=== PATIENT | male | born 1965 | race African-American/Black ===

== ENCOUNTER 2016-07-08 20:15 | Emergency (ER) | payer MEDICAID ==
[~2016-07-08] VITALS: Ht 170.2 cm; Wt 86.2 kg
[2016-07-08] MEDS ORDERED: ZYPREXA2.5 MG ORAL (20:26)
[2016-07-08] MEDS ORDERED: UNOBMED (20:26)
[2016-07-08] MEDS ORDERED: ZOLOFT25 MG ORAL (20:26)
[2016-07-08] MEDS ORDERED: ABILIFY15 MG ORAL (20:26)
[2016-07-08] MEDS ORDERED: IBUPROFEN600 MG ORAL (20:38)
[2016-07-08] MEDS ORDERED: PENICILLIN V P500 MG PO (20:39)
[2016-07-08 20:45] VITALS: BP 145/93
[2016-07-08 20:54] VITALS: BP 145/93
--- NOTE | 2016-07-12 13:49 | Emergency Room Report ---
History of Present Illness General Chief Complaint: Headache Source: Patient Present Illness HPI Patient is a 50-year-old male who presented after increased headache gradual onset over the past few days. The patient had noticed some increased pain to his throat as well as some mouth lesions. Patient had history of hypertension. Patient had been taking ibuprofen without relief in headache. The patient had no recent vomiting or diarrhea. Patient denied any fever or neck stiffness.The pain was throbbing in nature. Allergies: Coded Allergies: No Known Allergies (Unverified , 07/08/16) Patient History Past Medical History: see triage record Reviewed Nursing Documentation: PMH: Agreed, PSxH: Agreed Nursing Documentation-PMH Past Medical History: No History, Except For Hx Cardiac Problems: No Hx Hypertension: Yes - HIV + Hx Asthma: No Review of Systems All Other Systems: negative except mentioned in HPI Physical Exam Vital Signs Date Time Temp Pulse Resp B/P Pulse Ox O2 Delivery O2 Flow Rate FiO2 07/08/16 20:21 98.4 100 16 145/93 98 Room Air General Appearance: well appearing, no apparent distress, alert, GCS 15 Head: normocephalic, atraumatic ENT: hearing grossly normal, normal voice, other - apthous ulcer to oropharynx Neck: full range of motion, supple Respiratory: no respiratory distress, speaking full sentences Cardiovascular #1: normal peripheral pulses, regular rate, rhythm, no edema Gastrointestinal: normal inspection, non tender, soft Musculoskeletal: normal inspection, back normal, digits/nails normal, no calf tenderness Neurologic: normal inspection, alert, oriented x3, responsive, operations lieutenant III-XII nml as tested, normal gait Psychiatric: mood/affect normal Skin: no rash Medical Decision Making Diagnostic Impression: Primary Impression: Headache Additional Impression: Aphthous ulcer ER Course Patient presented for headache.Differential diagnoses included but was not limited to skull fracture, subarachnoid hemorrhage, meningitis, aneurysm, mass lesion, intracranial hemorrhage. Patient's benign exam and does not appear to require any further imaging or laboratory testing at this time. The patient appears to have a viral illness. The patient was advised followup with his infectious disease physician. Patient was given penicillin for a dental infection. Patient is advised to recheck in one to 2 days. He is advised to return if he began having worsening headache high fever or other concerns. Last Vital Signs Date Time Temp Pulse Resp B/P Pulse Ox O2 Delivery O2 Flow Rate FiO2 07/08/16 20:54 98.4 16 145/93 98 Room Air 07/08/16 20:21 100 Status: improved Disposition: HOME, SELF-CARE Condition: Stable Scripts Penicillin V Potassium* (PENVK*) 500 Mg Tablet 500 MG PO Q6H, #28 TAB 0 Refills Prov: Raghavendra Roy 07/08/16 Ibuprofen* (MOTRIN*) 600 Mg Tablet 600 MG ORAL Q8H Y for For Pain, #30 TAB 0 Refills Prov: Raghavendra Roy 07/08/16 Referrals: NON PHYSICIAN (PCP) Patient Instructions: Oral Ulcers, General Headache Without Cause Raghavendra Roy Jul 12, 2016 13:49
== END 2016-07-08 20:54 | disposition home or self-care (01) ==
LOC: EMR 20:46
DX: R51 Headache (principal); K12.0 Recurrent oral aphthae; I10 Essential (primary) hypertension
CPT/HCPCS: 99284

== ENCOUNTER 2016-12-01 05:08 | Emergency (ER) | payer MEDICAID ==
[~2016-12-01] VITALS: Ht 170.2 cm; Wt 90.7 kg
[~2016-12-01 05:08] MED LIST: ABILIFY15 MG ORAL; IBUPROFEN600 MG ORAL; PENICILLIN V P500 MG PO; UNOBMED; ZOLOFT25 MG ORAL; ZYPREXA2.5 MG ORAL
[2016-12-01 05:30] VITALS: BP 111/78
[2016-12-01] MEDS ORDERED: ANUSOL-HC25 MG RECTAL (06:24)
[2016-12-01] MEDS ORDERED: MAGIC MOUTH WAS60 ML MM (06:24)
[2016-12-01 06:35] VITALS: BP 118/82
--- NOTE | 2016-12-02 07:35 | Emergency Room Report ---
History of Present Illness General Chief Complaint: Gastrointestinal Bleed Source: Patient Present Illness HPI 51YOM walk-in with hemorrhoids and bleeding for 2 days States applying prep-H without improvement Known hemorrhoids States "bleeding a lot." States he looked on internet and was told he "needs emergency surgery." Denies chest pain, palpitations, SOB, dizziness Never had colonoscopy hasnt seen GI or surgeon for hemorrhoids in past Allergies: Coded Allergies: No Known Allergies (Unverified , 07/08/16) Patient History Past Medical History: none Past Surgical History: none Pertinent Family History: none Social History: Denies: smoking, alcohol use, drug use Immunizations: UTD Reviewed Nursing Documentation: PMH: Agreed, PSxH: Agreed Nursing Documentation-PMH Hx Cardiac Problems: No Hx Hypertension: Yes - HIV + Hx Asthma: No Review of Systems All Other Systems: negative except mentioned in HPI Physical Exam Vital Signs Date Time Temp Pulse Resp B/P (MAP) Pulse Ox O2 Delivery O2 Flow Rate FiO2 12/01/16 05:25 98.4 103 18 111/78 98 12/01/16 05:30 Room Air Sp02 EP Interpretation: reviewed, normal General Appearance: normal inspection, well appearing, no apparent distress, alert, GCS 15, non-toxic Head: normocephalic, atraumatic Eyes: bilateral eye PERRL, bilateral eye EOMI ENT: normal ENT inspection, hearing grossly normal, normal voice Neck: normal inspection, full range of motion, supple, no bony tend Respiratory: normal inspection, lungs clear, normal breath sounds, no respiratory distress, no retraction, no wheezing Cardiovascular #1: regular rate, rhythm, no edema Gastrointestinal: normal inspection, normal bowel sounds, non tender, soft, no guarding, no hernia Rectal: normal exam, other - 12'oclock there is very small external hemhorrid with mild ttp. no active bleeding or melena. No fissure. No masses Genitourinary: no CVA tenderness Musculoskeletal: normal inspection, back normal, normal range of motion, Kaden' s Sign negative Neurologic: normal inspection, alert, oriented x3, responsive, dance professor III-XII nml as tested, motor strength/tone normal, speech normal Psychiatric: normal inspection, judgement/insight normal, mood/affect normal Medical Decision Making Diagnostic Impression: Primary Impression: Hemorrhoids Qualified Codes: K64.0 - First degree hemorrhoids ER Course Very mild hemorrhoids VSS Afebrile No active bleeding No anal fissure or mass Advised prep-H suppository, topical viscous lidocaine PMD and GI referral DC home Last Vital Signs Date Time Temp Pulse Resp B/P (MAP) Pulse Ox O2 Delivery O2 Flow Rate FiO2 12/01/16 06:35 98.4 99 18 118/82 98 Room Air Status: improved Disposition: HOME, SELF-CARE Condition: Improved Scripts Hydrocortisone Acetate* (ANUSOL-HC*) 25 Mg Supp.rect 1 SUPP RECTAL TWICE A DAY for 7 Days, #30 SUPP Prov: CHRISSIE REEDER M.D. 12/01/16 Lidocaine HCl (Lidocaine HCl Viscous) 100 Ml Solution 10 ML MM TID for rectal pain for 7 Days, #1 UNIT Prov: CHRISSIE REEDER M.D. 12/01/16 Referrals: NON PHYSICIAN (PCP) Patient Instructions: Hemorrhoids CHRISSIE REEDER M.D. Dec 02, 2016 07:35
== END 2016-12-01 06:35 | disposition home or self-care (01) ==
LOC: EMR 05:50
DX: K64.0 First degree hemorrhoids (principal)
CPT/HCPCS: 99284

== ENCOUNTER 2017-10-28 10:26 | Emergency (ER) | payer MEDICAID ==
[~2017-10-28] VITALS: Ht 170.2 cm; Wt 83.5 kg
[~2017-10-28 10:26] MED LIST changes: +ANUSOL-HC25 MG RECTAL; +MAGIC MOUTH WAS60 ML MM
[2017-10-28] MEDS ORDERED: Ketorolac 60mg Inj IM ONE (11:15)
--- NOTE | 2017-10-28 11:36 | Diagnostic Imaging Report ---
Indication: Pain Technique: XRAY Hip Routine 2v+ R Comparison: None Findings: No definite/displaced fracture identified. There is mild degenerative change of the right hip with some small marginal osteophytes. Some enthesopathic change in the pelvic bones noted. Symphysis pubis appears maintained. Some phleboliths are identified. Impression: No definite/displaced acute fracture.
--- NOTE | 2017-10-28 11:37 | Diagnostic Imaging Report ---
Indication: Pain Technique: XRAY Ankle Compl Min 3v R Comparison: None Findings: There is no evidence of acute fracture. Ankle mortise is intact on these nonstress views. There is a small plantar calcaneal enthesophyte. Otherwise, imaged hindfoot grossly unremarkable. No radiopaque foreign body seen. Impression: No evidence of acute fracture or dislocation. Small plantar calcaneal enthesophyte.
[2017-10-28] MEDS ORDERED: VOLTAREN100 G1 TP (12:04)
[2017-10-28 12:22] VITALS: BP 122/71
--- NOTE | 2017-10-28 13:03 | Emergency Room Report ---
History of Present Illness General Chief Complaint: Lower Extremity Injury Source: Patient, Medical Record Present Illness HPI Patient is a 52-year-old male who presented after increased right-sided hip pain as well as right ankle pain. Patient prior history of chronic arthritis to his right lower extremities. The patient reports having recent increased pain. He denies any fever. He reports having a recent ankle injury and subsequently been having increased pain. He denies any numbness or tingling. He reports having pain to the posterior buttock as well as to the right ankle. Patient reports being a smoker. He denies any fever. Allergies: Coded Allergies: No Known Allergies (Unverified , 07/08/16) Patient History Past Medical History: see triage record Reviewed Nursing Documentation: PMH: Agreed; PSxH: Agreed Nursing Documentation-PMH Past Medical History: No History, Except For Hx Cardiac Problems: No Hx Hypertension: Yes - HIV + Hx Asthma: No Review of Systems All Other Systems: negative except mentioned in HPI Physical Exam Vital Signs Date Time Temp Pulse Resp B/P (MAP) Pulse Ox O2 Delivery O2 Flow Rate FiO2 10/28/17 10:29 98.5 81 18 117/84 99 Room Air 98.4 General Appearance: well appearing, no apparent distress, alert, GCS 15 Head: normocephalic, atraumatic ENT: hearing grossly normal, normal voice Neck: full range of motion, supple Respiratory: no respiratory distress, speaking full sentences Cardiovascular #1: normal inspection, normal peripheral pulses, regular rate, rhythm, no edema Musculoskeletal: no calf tenderness, other - pulses present Neurologic: normal inspection, alert, oriented x3, normal gait Psychiatric: mood/affect normal Skin: no rash Medical Decision Making Diagnostic Impression: Primary Impression: Arthritis ER Course Patient present for right lower extremity pain. Differential diagnosis included but was not limited to fracture, contusion, vascular insufficiency, aortic aneurysm, cellulitis.Because of complexity of patient's case imaging studies were ordered. The x-ray imaging of the right hip as well as the right ankle showed no definite fracture with small marginal osteophytes x-ray of the ankle 3 views read by radiology showed small plantar calcaneal osteophyte no evident fracture. The patient was given pain medications. He is advised follow -up with his own primary care physician for orthopedic referral the patient was advised smoking cessation as well as improve diet. Last Vital Signs Date Time Temp Pulse Resp B/P (MAP) Pulse Ox O2 Delivery O2 Flow Rate FiO2 10/28/17 12:22 98.2 71 16 122/71 98 Room Air 98.4 Status: improved Disposition: HOME, SELF-CARE Condition: Stable Scripts Diclofenac Sodium (VOLTAREN) 100 Gm Gel..gram. 100 GM TP THREE TIMES A DAY, #100 GM Prov: Raghavendra Roy MD 10/28/17 Patient Instructions: Hip Pain, Ankle Pain Raghavendra Roy MD Oct 28, 2017 13:03
== END 2017-10-28 12:23 | disposition home or self-care (01) ==
LOC: EMR 11:15
DX: M19.071 Primary osteoarthritis, right ankle and foot (principal); M16.11 Unilateral primary osteoarthritis, right hip
CPT/HCPCS: 96372; 99284

== ENCOUNTER 2018-02-08 17:59 | Emergency (ER) | payer MEDICAID ==
[~2018-02-08] VITALS: Ht 170.2 cm; Wt 81.6 kg
[~2018-02-08 17:59] MED LIST changes: +VOLTAREN100 G1 TP
[2018-02-08] MEDS ORDERED: IBUPROFEN600 MG ORAL (18:56)
[2018-02-08 19:16] VITALS: BP 140/80
--- NOTE | 2018-02-08 20:14 | Emergency Room Report ---
History of Present Illness General Chief Complaint: Lower Extremity Injury Source: Patient Present Illness HPI Patient is a 52-year-old male presenting for right ankle pain for the past 3 days. He states that he was walking and misstepped and felt the ankle folded underneath him. Pain has continued and is a 6 out of 10 dull ache now. Does not radiate. Worse with movement and walking. he has used Tylenol which helps. He admits to many sprained ankles in the past and this feels similar. He denies any other injury or symptoms Allergies: Coded Allergies: No Known Allergies (Unverified , 07/08/16) Patient History Past Medical History: see triage record Pertinent Family History: none Reviewed Nursing Documentation: PMH: Agreed; PSxH: Agreed Nursing Documentation-PMH Past Medical History: No History, Except For Hx Cardiac Problems: No Hx Hypertension: Yes - HIV + Hx Asthma: No Review of Systems All Other Systems: negative except mentioned in HPI Physical Exam Vital Signs Date Time Temp Pulse Resp B/P (MAP) Pulse Ox O2 Delivery O2 Flow Rate FiO2 02/08/18 18:04 97.7 110 18 143/84 98 Room Air Sp02 EP Interpretation: reviewed, normal General Appearance: no apparent distress, alert, GCS 15, non-toxic Head: normocephalic, atraumatic Eyes: bilateral eye normal inspection, bilateral eye PERRL ENT: hearing grossly normal, normal pharynx, no angioedema, normal voice Neck: full range of motion, supple/symm/no masses Musculoskeletal: no calf tenderness, decreased range of motion - R ankle with internal and ext rotation, swelling - R ankle, tender - R ankle medial mal Neurologic: alert, oriented x3, responsive, motor strength/tone normal, sensory intact, speech normal Psychiatric: judgement/insight normal, memory normal, mood/affect normal, no suicidal/homicidal ideation Skin: normal color, no rash, warm/dry, well hydrated Procedures Splinting Splinting : Consent: Verbal Location: R ankle Pre-Made Type: ALBA wrap Pre-Proc Neuro Vasc Exam: normal Post-Proc Neuro Vasc Exam: normal Patient Tolerated: Well Complications: None Medical Decision Making PA Attestation Dr. Heard is my supervising physician. Patient management was discussed with my supervising physician Diagnostic Impression: Primary Impression: Right ankle sprain Qualified Codes: S93.401A - Sprain of unspecified ligament of right ankle, initial encounter ER Course Patient is a 52-year-old male presenting for right ankle pain for the past 3 days Ddx considered include but not limited to sprain/strain, fracture, contusion Physical exam: Vitals within normal limits. No apparent distress Left ankle: There is tenderness to palpation and edema over the left lateral malleolus. Limited active range of motion. Sensation intact to light touch. X-ray of the R ankle shows soft tissue swelling. Otherwise unremarkable R ankle placed in ALBA wrap and the patient is provided crutches. ER precautions are given. Patient given prescription for Motrin and will follow up with primary care physician. Other X-Ray Diagnostic Results Other X-Ray Diagnostic Results : X-Ray ordered: R ankle # of Views/Limited Vs Complete: 3 View, Complete Indication: Pain EP Interpretation: Yes ESTHER Xray: Interpretation reviewed, by supervising MD, and agrees with findings. Interpretation: no dislocation, no fractures, other - + STS Impression: Other - + STS. no fracture Electronically Signed by: Willie Cruz PA-C Last Vital Signs Date Time Temp Pulse Resp B/P (MAP) Pulse Ox O2 Delivery O2 Flow Rate FiO2 02/08/18 19:16 98.6 78 16 140/80 100 Room Air Status: improved Disposition: HOME, SELF-CARE Condition: Improved Scripts Ibuprofen* (MOTRIN*) 600 Mg Tablet 600 MG ORAL Q8H PRN for For Pain, #30 TAB 0 Refills Prov: WILLIE CRUZ 02/08/18 Patient Instructions: Ankle Sprain Additional Instructions: I discussed my findings with the patient. All questions and concerns have been answered. Treatment and medication compliance have been addressed. I advised the patient that they need to follow up with PMD in 3-5 days. Return to ED if pain remains or worsens, numbness or tingling occurs, new rash is noticed, fever is noticed, or if needed for any reason. Patient verbalized understanding of discharge instructions. WILLIE CRUZ Feb 08, 2018 20:14
--- NOTE | 2018-02-09 17:49 | Diagnostic Imaging Report ---
Indication: Pain Technique: 3 views of the right ankle Comparison: none Findings: There is a small plantar spur. No acute fractures. No dislocations. The joint spaces are preserved Impression: Negative This agrees with the preliminary interpretation provided by the emergency room physician
== END 2018-02-08 19:18 | disposition home or self-care (01) ==
LOC: EMR 18:40
DX: S93.401A Sprain of unspecified ligament of right ankle, initial encounter (principal); X50.1XXA Overexertion from prolonged static or awkward postures, initial encounter; Y92.9 Unspecified place or not applicable; I10 Essential (primary) hypertension
CPT/HCPCS: 99282

== ENCOUNTER 2018-07-17 15:53 | Emergency (ER) | payer MEDICAID ==
[~2018-07-17] VITALS: Ht 170.2 cm; Wt 81.6 kg
--- NOTE | 2018-07-17 16:34 | NUR ---
ED Nurse Note: pt walked in c/o right ankle pain, pt states he injured his right ankle before and today he was stepping down the stairs and accidentally tripped on his ankle. noted swelling and tenderness, cms intact, cap refill <3sec will cont monitor.
[2018-07-17] MEDS ORDERED: NORCO 5-325 TA1 EACH ORAL (17:18)
--- NOTE | 2018-07-17 17:19 | Emergency Room Report ---
History of Present Illness General Chief Complaint: Lower Extremity Injury Source: Medical Record Present Illness HPI 52-year-old male presents with ankle pain and swelling since 2 days ago. States that he rolled his ankle. He has swelling and tenderness associated with symptoms. He denies any bruising. He is taken naproxen without improvement of symptoms today. States that he has a history of a heel spur there before believes that this might be the source of his pain. Patient denies any numbness, tingling, pressure, paralysis, cyanosis, bruising, loss of sensation, or loss of range of motion. Allergies: Coded Allergies: No Known Allergies (Unverified , 07/08/16) Patient History Past Medical History: see triage record Past Surgical History: none Pertinent Family History: none Reviewed Nursing Documentation: PMH: Agreed; PSxH: Agreed Nursing Documentation-PMH Past Medical History: No History, Except For Hx Cardiac Problems: No Hx Hypertension: Yes - HIV + Hx Asthma: No Review of Systems All Other Systems: negative except mentioned in HPI Physical Exam Vital Signs Date Time Temp Pulse Resp B/P (MAP) Pulse Ox O2 Delivery O2 Flow Rate FiO2 07/17/18 16:11 98.8 102 18 153/95 95 Room Air Sp02 EP Interpretation: reviewed, normal General Appearance: no apparent distress, alert, GCS 15, non-toxic Head: normocephalic, atraumatic Eyes: bilateral eye normal inspection, bilateral eye PERRL ENT: hearing grossly normal, normal pharynx, no angioedema, normal voice Neck: normal inspection Respiratory: no respiratory distress Cardiovascular #1: normal peripheral pulses, regular rate, rhythm Musculoskeletal: back normal, normal range of motion, swelling - Right medial malleolus, other - Antalgic gait, tender - Right medial malleolus Neurologic: alert, oriented x3, responsive, motor strength/tone normal, sensory intact, speech normal Skin: normal color, no rash, warm/dry, well hydrated Medical Decision Making PA Attestation Dr. Medina is my supervising physician with whom patient management has been discussed with. Diagnostic Impression: Primary Impression: Right ankle sprain Additional Impression: Heel spur Qualified Codes: M77.31 - Calcaneal spur, right foot ER Course 52-year-old male presents with right ankle pain for 2 days status post inversion injury. On exam he has swelling and tenderness to the medial malleolus of his right ankle. X-ray of the right ankle shows no acute fracture but does show soft tissue swelling and a heel spur. Patient is able to ambulate without any significant difficulty although he does have an antalgic gait. Patient will be sent home with prescription of [place], and Cosme wrap bandage, and crutches and advised to follow-up with his primary care provider. At this time the patient appears stable for discharge home without any emergent exam findings. Will provide printed patient care instructions, and any necessary prescriptions. Care plan and follow up instructions have been discussed with the patient prior to discharge. Other X-Ray Diagnostic Results Other X-Ray Diagnostic Results : X-Ray ordered: Right ankle and foot # of Views/Limited Vs Complete: Complete Indication: Pain EP Interpretation: Yes ESTHER Xray: Interpretation reviewed, by supervising MD, and agrees with findings. Interpretation: no dislocation, no fractures, other - Soft tissue swelling along the medial malleolus. Heel spur noted Electronically Signed by: Chato Johnson PA-C Last Vital Signs Date Time Temp Pulse Resp B/P (MAP) Pulse Ox O2 Delivery O2 Flow Rate FiO2 07/17/18 16:11 98.8 102 18 153/95 95 Room Air Condition: Stable Scripts Hydrocodone Bit/Acetaminophen 5-325* (NORCO 5-325*) 1 Each Tablet 1 TAB ORAL Q8HR PRN for For Pain, #15 TAB 0 Refills Prov: Chato Johnson 07/17/18 Patient Instructions: Ankle Sprain Additional Instructions: Take medication as directed. Patient advised to follow up with primary care provider within next 3-5 days. Keep Cosme wrap and crutches as directed. Advised patient to use RICE therapy and nsaids as prescribed. Patient is to go to the ER immediately if they experience any pain that is not responding to medication , excess swelling, pressure feeling, loss of color, cyanosis, paralysis, or numbness. Chato Johnson Jul 17, 2018 17:19
--- NOTE | 2018-07-17 17:29 | Diagnostic Imaging Report ---
Indication: Pain status post fall Technique: XRAY Foot Complete R Comparison: None Findings: No evidence of acute fracture or dislocation. Small plantar enthesophyte is noted. There may be mild pes planus. No radiopaque foreign body identified. Impression: No acute fracture or dislocation.
--- NOTE | 2018-07-17 17:30 | Diagnostic Imaging Report ---
Indication: Reason For Exam: PAIN Technique: 3 views of the right ankle Comparison: none Findings: No acute fracture identified. Ankle mortise is intact on these nonstress views. No ankle joint effusion is appreciated. There is soft tissue swelling about the medial malleolus. A small plantar calcaneal enthesophyte is noted. No radiopaque foreign body. Impression: Mild swelling about the medial malleolus suggestive of an ankle sprain. No evidence of acute fracture. Ankle mortise intact.
--- NOTE | 2018-07-17 17:40 | NUR ---
ED Nurse Note: pt cleared to be d/c per ER provider, pt acewrap applied per provider order, pt refused crutches, pt discharge and aftercare instruction provided w/ prescription, pt education done via discussion and handout, pt advised to follow up with pcp or return to ed if changes in condition, pt verbalized understanding and agrees with plan, vss, ambulatory w/ steady gait, left w/ all belongings, ID band removed.
[2018-07-17 17:41] VITALS: BP 153/95
== END 2018-07-17 17:40 | disposition home or self-care (01) ==
LOC: EMR 16:40
DX: S93.401A Sprain of unspecified ligament of right ankle, initial encounter (principal); X50.1XXA Overexertion from prolonged static or awkward postures, initial encounter; Y92.9 Unspecified place or not applicable; M77.31 Calcaneal spur, right foot
CPT/HCPCS: 99284

== ENCOUNTER 2018-10-13 10:50 | Emergency (ER) | payer MEDICAID ==
[~2018-10-13] VITALS: Ht 170.2 cm; Wt 81.6 kg
[~2018-10-13 10:50] MED LIST changes: +NORCO 5-325 TA1 EACH ORAL
[2018-10-13] MEDS ORDERED: VIAGRA100 MG PO (11:02)
--- NOTE | 2018-10-13 11:11 | NUR ---
ED Nurse Note: pt walked in due to pain on the right hip and posible std on his anus. pt stated he might twisted his hip 2-3 days ago when trying to help someone. and pt is also concern on his ninfa if he has std because he said it has a small bleeding. pt able to give urine specimen and sent to lab. will continue to monitor.
[2018-10-13] MEDS ORDERED: Lidocaine 1% MPF 10mg/ml 5ml INJ ONE (12:00)
[2018-10-13] MEDS ORDERED: Azithromycin 250mg tab ORAL ONE (12:00)
[2018-10-13] MEDS ORDERED: Naproxen 500mg tab ORAL ONE (12:00)
--- NOTE | 2018-10-13 12:08 | Emergency Room Report ---
History of Present Illness General Chief Complaint: Lower Extremity Injury Source: Patient Present Illness HPI 53-year-old male with a history of receptive anal intercourse as well as back arthritis and heel spurs presents with rectal discomfort and concern for STD status post unprotected intercourse. He denies any fevers, lumps or masses, foreign body sensation, urinary symptoms, and reports he has had chlamydia and gonorrhea in the remote past. Still complains of right hip pain, feels like he twisted it a few weeks ago, and is able to ambulate on it. Denies fevers, he ambulates at baseline with a cane Allergies: Coded Allergies: No Known Allergies (Unverified , 07/08/16) Patient History Past Medical History: see triage record Reviewed Nursing Documentation: PMH: Agreed; PSxH: Agreed Nursing Documentation-PMH Past Medical History: No History, Except For Hx Cardiac Problems: No Hx Hypertension: Yes - HIV + Hx Asthma: No Review of Systems All Other Systems: negative except mentioned in HPI Physical Exam Vital Signs Date Time Temp Pulse Resp B/P (MAP) Pulse Ox O2 Delivery O2 Flow Rate FiO2 10/13/18 10:53 97.9 97 17 144/95 (111) 99 Room Air Sp02 EP Interpretation: reviewed, normal General Appearance: no apparent distress, alert, non-toxic Head: normocephalic Eyes: bilateral eye normal inspection, bilateral eye PERRL, bilateral eye EOMI ENT: normal ENT inspection, hearing grossly normal, normal pharynx, no angioedema, normal voice, moist mucus membranes Neck: normal inspection, full range of motion, supple, supple/symm/no masses Respiratory: chest non-tender, lungs clear, normal breath sounds, chest symmetrical, palpation of chest normal Cardiovascular #1: normal peripheral pulses, regular rate, rhythm, no edema, no gallop, no JVD Cardiovascular #2: 2+ radial (R), 2+ radial (L) Gastrointestinal: normal inspection, non tender, soft, no mass, no guarding, no rebound Rectal: normal exam - brown stool, no masses, no tenderness done with Anna from field staff manager at bedside, normal rectal tone Genitourinary: normal inspection, no CVA tenderness Musculoskeletal: back normal, gait/station normal, normal range of motion, non- tender, no calf tenderness Neurologic: alert, responsive, pot filler III-XII nml as tested, motor strength/tone normal, sensory intact, speech normal Psychiatric: judgement/insight normal, memory normal, mood/affect normal, no suicidal/homicidal ideation Lymphatic: no adenopathy Medical Decision Making Diagnostic Impression: Primary Impression: Rectalgia Additional Impressions: Unprotected sex Hip pain ER Course Patient given azithromycin, Rocephin, naproxen, will discharge with instructions to follow-up with PMD for referral for GI and colonoscopy as he is over 50 years, has receptive anal intercourse, and also recommend he get further STI testing including for syphilis and HIV and avoid intercourse until doing so, he understands and agrees. Patient is at risk for anal abscess, but examination is benign right now, I did instruct him just to return the ER if he notices increasing swelling or pain, currently he just feels discomfort in the anal area. Hip exam is benign, do not suspect infection, x-ray unremarkable other than degenerative changes. Last Vital Signs Date Time Temp Pulse Resp B/P (MAP) Pulse Ox O2 Delivery O2 Flow Rate FiO2 10/13/18 10:53 97.9 97 17 144/95 (111) 99 Room Air Disposition: HOME, SELF-CARE Condition: Stable Referrals: [facility] (PCP) CATIE REYNOSO M.D Oct 13, 2018 12:08
--- NOTE | 2018-10-13 12:23 | NUR ---
ED Nurse Note: building tech on bedside, pt refused xray. stephanied made aware.
[2018-10-13] MEDS ORDERED: NAPROXEN250 MG ORAL (12:25)
[2018-10-13 12:37] VITALS: BP 144/95
--- NOTE | 2018-10-13 12:37 | NUR ---
ER DISCHARGE NOTE: Patient is cleared to be discharged per ERMD, pt is aox4, on room air, with stable vital signs. pt was given dc and prescription instructions, pt was able to verbalize understanding, pt id band removed without complications. pt is able to ambulate with steady gait. pt took all belongings.
== END 2018-10-13 12:37 | disposition home or self-care (01) ==
LOC: EMR 11:12
DX: K62.89 Other specified diseases of anus and rectum (principal); M25.551 Pain in right hip; B20 Human immunodeficiency virus [HIV] disease; Z20.2 Contact with and (suspected) exposure to infections with a predominantly sexual mode of transmission
CPT/HCPCS: 87491; 87590; 96372; 99283; J0696; Q0144

== ENCOUNTER 2018-10-28 18:46 | Emergency (ER) | payer MEDICAID ==
[~2018-10-28] VITALS: Ht 170.2 cm; Wt 81.6 kg
[~2018-10-28 18:46] MED LIST changes: +NAPROXEN250 MG ORAL; +VIAGRA100 MG PO
--- NOTE | 2018-10-28 18:56 | NUR ---
ED Nurse Note: Pt walked in ED c/o right hip pain 10/10.
[2018-10-28 18:58] VITALS: BP 110/76
[2018-10-28] MEDS ORDERED: Ketorolac 60mg Inj IM ONE (19:15)
--- NOTE | 2018-10-28 19:21 | Emergency Room Report ---
History of Present Illness General Chief Complaint: Pain Source: Patient Present Illness HPI 53-year-old male with history of chronic hip pain after a fall that occurred years ago here complaining of exacerbation of his pain that started today. Patient is rating his pain 10 out of 10 with radiation to right leg denying tingling numbness. Denies urinary bowel incontinence and saddle paresthesia. Patient reports that he usually takes [place] 10 and has not yet seen a pain management doctor and is not under the care of of a specialist as he likes to wait until the pain is really bad and goes to the emergency room. Patient is using a cane to ambulate. Denies abdominal pain, chest pain, shortness of breath, palpitation, headache, dizziness, history of diabetes or acute renal failure. Allergies: Coded Allergies: No Known Allergies (Unverified , 07/08/16) Patient History Past Medical History: see triage record Past Surgical History: unable to obtain Pertinent Family History: none Immunizations: UTD Reviewed Nursing Documentation: PMH: Agreed; PSxH: Agreed Nursing Documentation-PMH Past Medical History: No History, Except For Hx Cardiac Problems: No Hx Hypertension: Yes - HIV + Hx Asthma: No Review of Systems All Other Systems: negative except mentioned in HPI Physical Exam Vital Signs Date Time Temp Pulse Resp B/P (MAP) Pulse Ox O2 Delivery O2 Flow Rate FiO2 10/28/18 18:52 97.7 120 20 110/76 (87) 97 Room Air Sp02 EP Interpretation: reviewed, normal General Appearance: normal inspection, well appearing, no apparent distress, alert Head: normocephalic, atraumatic Eyes: bilateral eye normal inspection, bilateral eye PERRL ENT: normal ENT inspection, hearing grossly normal, normal pharynx Neck: normal inspection, full range of motion, supple Respiratory: normal inspection, chest non-tender, lungs clear, normal breath sounds Cardiovascular #1: normal inspection, normal peripheral pulses, regular rate, rhythm, no edema, no gallop, no murmur Gastrointestinal: normal inspection, non tender, soft Rectal: deferred Genitourinary: no CVA tenderness Musculoskeletal: normal inspection, back normal, digits/nails normal, gait/ station normal, normal range of motion, non-tender Neurologic: normal inspection, alert, oriented x3 Psychiatric: normal inspection, judgement/insight normal, memory normal Skin: normal color Lymphatic: normal inspection, no adenopathy Medical Decision Making PA Attestation All diagnoses and treatment plans were reviewed and discussed with my supervising physician Dr. Mauricio Diagnostic Impression: Primary Impression: Chronic hip pain ER Course 53-year-old male with history of chronic hip pain after a fall that occurred years ago here complaining of exacerbation of his pain that started today. Patient is rating his pain 10 out of 10 with radiation to right leg denying tingling numbness. Denies urinary bowel incontinence and saddle paresthesia. Patient reports that he usually takes [place] 10 and has not yet seen a pain management doctor and is not under the care of of a specialist as he likes to wait until the pain is really bad and goes to the emergency room. Patient is using a cane to ambulate. Denies abdominal pain, chest pain, shortness of breath, palpitation, headache, dizziness, history of diabetes or acute renal failure. Ddx considered but are not limited to: Lumbar spine sprain, strain, fracture, contusion, neuropathy, chronic hip pain, cauda equina Vital signs: are WNL, pt. is afebrile H&PE are most consistent with: Chronic hip pain ORDERS: Toradol, naproxen ER intervention: Toradol DISCHARGE: At this time pt. is stable for d/c to home. Will provide printed patient care instructions, and any necessary prescriptions. Care plan and follow up instructions have been discussed with the patient prior to discharge. Patient to follow-up with pain management as this is chronic pain and cannot be given a prescription for narcotics at this time. No further imaging is needed as patient has been having this pain for years and in no new injury or fall has occurred. Last Vital Signs Date Time Temp Pulse Resp B/P (MAP) Pulse Ox O2 Delivery O2 Flow Rate FiO2 10/28/18 18:58 97.7 118 20 110/76 97 Room Air Disposition: HOME, SELF-CARE Condition: Stable Scripts Naproxen* (NAPROXEN*) 500 Mg Tablet 500 MG ORAL TWICE A DAY, #30 TAB Prov: Serina Toro 10/28/18 Referrals: [facility] (PCP) Patient Instructions: Hip Pain Additional Instructions: Take medication as directed follow-up with your pain management Serina Toro Oct 28, 2018 19:21
[2018-10-28] MEDS ORDERED: NAPROXEN500 M2 ORAL (19:24)
[2018-10-28 19:34] VITALS: BP 110/76
--- NOTE | 2018-10-28 19:35 | NUR ---
ED Nurse Note: Pt cleared by health care Provider for discharge. DC instructions/prescription was given and explained to pt and verbalized understanding of teachings. All medical deviecs such as ID band removed. Pt is AAO x4, ambulatory and left with all personal belongings.
== END 2018-10-28 19:36 | disposition home or self-care (01) ==
LOC: EMR 19:00
DX: G89.29 Other chronic pain (principal); M25.551 Pain in right hip; B20 Human immunodeficiency virus [HIV] disease
CPT/HCPCS: 96372; 99283

== ENCOUNTER 2019-02-17 21:09 | Emergency (ER) | payer MEDICAID ==
[~2019-02-17] VITALS: Ht 170.2 cm; Wt 80.3 kg
[~2019-02-17 21:09] MED LIST changes: +NAPROXEN500 M2 ORAL
--- NOTE | 2019-02-17 21:20 | NUR ---
ED Nurse Note: Walk-in patient with complaints of lesion of unknown etiology on the left forearm.
[2019-02-17 21:21] VITALS: BP 132/90
--- NOTE | 2019-02-17 21:21 | NUR ---
ED Nurse Note: ERMD at bedside.
--- NOTE | 2019-02-17 21:23 | Emergency Room Report ---
History of Present Illness General Chief Complaint: Skin Rash/Abscess Source: Patient Present Illness HPI Disclaimer: Please note that this report is being documented using DRAGON technology. This can lead to erroneous entry secondary to incorrect interpretation by the dictating instrument. HPI: 53-year-old male presents for evaluation of a small bump under the skin on his right forearm. Present for several days. States it is getting larger and smaller without obvious exert exacerbating or relieving factors. Nonpainful, no itching, no drainage. Denies redness, edema, bleeding. Denies any recent infectious symptoms such as fever, chills. No limitation to range of motion in the hand, wrist, elbow or shoulder. No spider bites, skin breakdown, scratches or other inciting events that he can recall. No prior history of cysts or ingrown hairs. PMH: Arthritis, depression PSH: Reviewed Allergies: None Social Hx: Denies Allergies: Coded Allergies: No Known Allergies (Unverified , 07/08/16) Nursing Documentation-PMH Past Medical History: No History, Except For Hx Cardiac Problems: No Hx Hypertension: Yes - HIV + Hx Asthma: No Review of Systems All Other Systems: negative except mentioned in HPI Physical Exam Vital Signs Date Time Temp Pulse Resp B/P (MAP) Pulse Ox O2 Delivery O2 Flow Rate FiO2 02/17/19 21:13 98.4 94 17 132/90 (104) 99 Room Air General: Awake and alert, no acute distress HEENT: NC/AT. EOMI. Resp: Normal work of breathing Skin: Intact. No abrasions, laceration or rash over the exposed skin. There is a 0.5 x 0.5 cm raised nontender papule over the ventral aspect of the right forearm. Nontender, nonfluctuant, soft. No overlying skin edema, erythema. No breakdown, no bleeding, no drainage. [place] negative. No urticaria. MSK: Normal tone and bulk. Moving all extremities. No obvious deformity. Full range of motion in all digits of the hand, at the wrist, elbow and shoulder Neuro: Awake and alert. Mentating appropriately Medical Decision Making Diagnostic Impression: Primary Impression: Cyst ER Course 53-year-old male presents for evaluation of a bump on his right arm for several days. No signs of infection. Most consistent with either a lipoma or small cyst. Lesion is very small and does not require drainage or further labs or imaging at this time. He can follow-up as an outpatient. Discussed reasons to return to the emergency department. He understands and agrees with this treatment plan. Last Vital Signs Date Time Temp Pulse Resp B/P (MAP) Pulse Ox O2 Delivery O2 Flow Rate FiO2 02/17/19 21:21 98.4 89 17 132/90 99 Room Air Disposition: HOME, SELF-CARE Condition: Stable Referrals: [facility] Patient Instructions: Epidermal Cyst, [id number] Additional Instructions: Please follow-up with your primary care doctor to discuss today's emergency department visit and for reevaluation of the bump on your arm which is most likely a cyst. If you see signs of infection such as redness, swelling, bruising, draining or bleeding return to the emergency department for reevaluation. Apply ice for comfort. Avoid touching it or trying to pop it as a kid make matters worse. Return to the emergency department any new or worsening symptoms. Colby Mauricio MD Feb 17, 2019 21:23
--- NOTE | 2019-02-17 21:25 | NUR ---
ED Nurse Note: PAtient cleared for discharge by ERMD, patient verbalied understanding of discharge instructions, ID band removed and patient departed with all belongings.
[2019-02-17 21:26] VITALS: BP 132/90
== END 2019-02-17 21:30 | disposition home or self-care (01) ==
LOC: EMR 21:20
DX: L72.9 Follicular cyst of the skin and subcutaneous tissue, unspecified (principal); I10 Essential (primary) hypertension; B20 Human immunodeficiency virus [HIV] disease; F32.9 Major depressive disorder, single episode, unspecified; M19.90 Unspecified osteoarthritis, unspecified site
CPT/HCPCS: 99282

== ENCOUNTER 2019-05-17 17:38 | Emergency (ER) | payer MEDICAID ==
[~2019-05-17] VITALS: Ht 170.2 cm; Wt 80.7 kg
--- NOTE | 2019-05-17 17:56 | NUR ---
ED Nurse Note: Pt ambulated to ed c/o right groin pain. pt states he had an injection 3 days ago for syphillis and doesnt know if it related.
[2019-05-17 17:58] VITALS: BP 118/69
--- NOTE | 2019-05-17 18:09 | NUR ---
ED Nurse Note: pt given urinal bottle, sample collected sent to lab
--- NOTE | 2019-05-17 18:13 | Emergency Room Report ---
History of Present Illness General Chief Complaint: Pain Source: Patient Present Illness HPI Disclaimer: Please note that this report is being documented using DRAGON technology. This can lead to erroneous entry secondary to incorrect interpretation by the dictating instrument. HPI: 53-year-old male history of HIV compliant with retroviral medication presents for evaluation of testicle pain. He notes worsening right-sided testicle pain and throbbing for the past 3 days. Denies any trauma or injury. No history of torsion in the past. Denies penile discharge or bleeding. Denies dysuria hematuria flank pain or fever. PMH: HIV Allergies: Coded Allergies: No Known Allergies (Unverified , 07/08/16) Nursing Documentation-PMH Hx Cardiac Problems: No Hx Hypertension: Yes Hx Asthma: No Review of Systems All Other Systems: negative except mentioned in HPI Physical Exam Vital Signs Date Time Temp Pulse Resp B/P (MAP) Pulse Ox O2 Delivery O2 Flow Rate FiO2 05/17/19 17:46 98.1 107 20 118/69 (85) 95 Room Air General: Awake and alert, no acute distress HEENT: NC/AT. EOMI. Resp: Normal work of breathing Abdomen: Tenderness in the suprapubic region without step-off or mass. : High riding right testicle that is enlarged and firm. Pain at a proportion to palpation. No cremasteric reflex on either side. Scrotum is tense. No penile discharge. Circumcised male. No evidence of inguinal hernia. No evidence of trauma Skin: Intact. No abrasions, laceration or rash over the exposed skin MSK: Normal tone and bulk. Moving all extremities. No obvious deformity. Neuro: Awake and alert. Mentating appropriately Medical Decision Making Diagnostic Impression: Primary Impression: UTI (urinary tract infection) Additional Impressions: Hydrocele Testicular microlithiasis ER Course 53-year-old male presents for evaluation of worsening right-sided testicle pain for 3 days duration. Differential includes was not limited to ovarian torsion, epididymitis, prostatitis, UTI to name a few. Must rule out testicular torsion with ultrasound. Will obtain urinalysis as well. Otherwise no signs of infection. Laboratory Tests Test 05/17/19 18:10 Urine Color Yellow Urine Appearance Slightly cloudy Urine pH 6 (4.5-8.0) Urine Specific [place] 1.020 (1.005-1.035) Urine Protein 2+ (NEGATIVE) H Urine Glucose (UA) Negative (NEGATIVE) Urine Ketones 1+ (NEGATIVE) H Urine Blood 2+ (NEGATIVE) H Urine Nitrite Negative (NEGATIVE) Urine Bilirubin 1+ (NEGATIVE) H Urine Ictotest Positive (NEGATIVE) Urine Urobilinogen 8 MG/DL (0.0-1.0) H Urine Leukocyte Esterase 3+ (NEGATIVE) H Urine RBC 20-30 /HPF (0 - 0) H Urine WBC 60-80 /HPF (0 - 0) H Urine Squamous Epithelial Cells None /LPF (NONE/OCC) Urine Bacteria Many /HPF (NONE) H CT/MRI/US Diagnostic Results CT/MRI/US Diagnostic Results : Impression Preliminary Findings Only See Final Report For Complete Findings US SCROTAL: Impression: Bilateral simple hydroceles, right greater than left. Testicular microlithiasis. Surveillance imaging follow-up is advised due to the association of testicular microlithiasis with seminoma formation. Flow is demonstrated to both testicles. No additional intrinsic testicular abnormalities. Incidental findings: The right testicle measures 2.8 x 3.1 x 2.8 cm. The left testicle measures 4.3 x 2.3 x 2.8 cm. Normal echogenicity of both testicles. Punctate calcifications are noted within the testicles bilaterally compatible with testicular microlithiasis. Surveillance imaging follow-up is advised. Small to moderate simple right hydrocele is noted. Small left hydrocele adjacent to the left epididymis. Flow is demonstrated to both testicles. Radiologist: Jaylen Hayward MD Reevaluation Time: 20:50 Last Vital Signs Date Time Temp Pulse Resp B/P (MAP) Pulse Ox O2 Delivery O2 Flow Rate FiO2 05/17/19 17:58 98.1 69 20 118/69 95 Room Air Reevaluation Impression Patient found to have a urinary tract infection bilateral hydroceles though right greater than left consistent with his exam. We will treat his urinary tract infection and referred to urology as he has microlithiasis. Will discharge on antibiotics. Short course of pain medication provided. Safe for outpatient follow-up. Disposition: HOME, SELF-CARE Condition: Stable Scripts Hydrocodone Bit/Acetaminophen 7.5-325* (NORCO 7.5-325*) 1 Each Tablet 1 TAB ORAL Q6H PRN for For Pain, #10 TAB 0 Refills Prov: Colby Mauricio MD 05/17/19 Ibuprofen* (MOTRIN*) 600 Mg Tablet 600 MG ORAL Q8H PRN for For Pain, #30 TAB 0 Refills Prov: Colby Mauricio MD 05/17/19 Trimethoprim/Sulfamethoxazole 160/800* (BACTRIM DS TABLET*) 1 Each Tablet 1 TAB ORAL Q12H for 10 Days, #20 TAB 0 Refills Prov: Colby Mauricio MD 05/17/19 Colby Mauricio MD May 17, 2019 18:12
[2019-05-17] MEDS ORDERED: Morphine Sulfate 2mg/ml Inj(IV/IM USE ONLY) IM ONE (18:15)
--- NOTE | 2019-05-17 18:19 | NUR ---
ED Nurse Note: us at bedside
[2019-05-17 18:37] LABS: APPEARANCE,URINE SLIGHTLY CLOUDY; BILIRUBIN, URINE 1+ (NEGATIVE); GLUCOSE, URINE (UA) NEGATIVE (NEGATIVE); KETONES,URINE 1+ (NEGATIVE); LEUKOCYTE ESTERASE ,URINE 3+ (NEGATIVE); NITRITE,URINE NEGATIVE (NEGATIVE); PH,URINE 6 (4.5-8.0); PROTEIN,URINE 2+ (NEGATIVE); UROBILINOGEN,URINE 8 MG/DL (0.0-1.0)
[2019-05-17 18:42] LABS: COLOR,URINE YELLOW
--- NOTE | 2019-05-17 19:09 | NUR ---
HAND-OFF: Report given to demetrio bell.
--- NOTE | 2019-05-17 19:22 | Diagnostic Imaging Report ---
Indications: Right testicular pain and swelling Technique: Grayscale and duplex images of the scrotum Comparison: And Findings:The right testicle measures 3cm in length. It demonstrates normal echogenicity. Small calcifications are seen within the testicular parenchyma. There is a small hydrocele. Normal Doppler flow. Normal epididymis. The left testicle measures 4.3 cm in length. It demonstrates normal echogenicity and normal Doppler flow. Normal epididymis. There is a trace hydrocele Impression: No acute or significant abnormality Bilateral testicular calcifications Trace bilateral hydroceles
[2019-05-17] MEDS ORDERED: IBUPROFEN600 MG ORAL (19:32)
[2019-05-17] MEDS ORDERED: NORCO 7.5-3251 EACH ORAL (19:32)
[2019-05-17] MEDS ORDERED: BACTRIM DS TAB1 EAC1 ORAL (19:32)
[2019-05-17] MEDS ORDERED: Bactrim-DS 1 tab ORAL ONE (19:45)
[2019-05-17 19:55] VITALS: BP 118/69
== END 2019-05-17 19:56 | disposition home or self-care (01) ==
LOC: EMR 18:00
DX: N43.3 Hydrocele, unspecified (principal); N39.0 Urinary tract infection, site not specified; N50.89 Other specified disorders of the male genital organs; B20 Human immunodeficiency virus [HIV] disease; I10 Essential (primary) hypertension
CPT/HCPCS: 76870; 81003; 87086; 96372; J2270; Z7502; 99284

== ENCOUNTER 2019-05-31 08:55 | Emergency (ER) | payer MEDICAID ==
[~2019-05-31] VITALS: Ht 170.2 cm; Wt 79.4 kg
[~2019-05-31 08:55] MED LIST changes: +BACTRIM DS TAB1 EAC1 ORAL; +NORCO 7.5-3251 EACH ORAL
--- NOTE | 2019-05-31 09:03 | NUR ---
ED Nurse Note: Pt ambulated to ED d/t groin pain on RT side. Per pt, he was "lifting stuff at home". Pt is AOx4, placed on bed. VSS, on RA, NAD.
--- NOTE | 2019-05-31 09:09 | NUR ---
ED Nurse Note: Dr. Marroquin at bedside.
[2019-05-31] MEDS ORDERED: Ketorolac 30mg Inj IV ONE (09:15)
--- NOTE | 2019-05-31 09:20 | NUR ---
ED Nurse Note: contacted US for the order
--- NOTE | 2019-05-31 09:21 | Emergency Room Report ---
History of Present Illness General Chief Complaint: Pain Source: Patient Present Illness HPI Patient presents with right testicular pain. He says he was treated for a similar problem 2 weeks ago (05/17). It seemed to get better. This began after he had sex this morning. There was no trauma. It was protected. Denies stable partner. Pain is severe right now and mainly in the testicle pain radiates up towards the body. He was treated with shots and other antibiotics when he presented last time. He had an U/S done. He reports a urinary infection. Patient denies any rectal pain. Review of old records reveal hydroceles and diagnosis of urinary tract infection treated with Bactrim. Morphine was administered IM. No treatment for STD done at that time. 05/18 U/S: Impression: No acute or significant abnormality. Bilateral testicular calcifications. Trace bilateral hydroceles. No fevers, chills, sore throat, chest pain, palpitations, nausea, vomiting, diarrhea, abdominal pain, shortness of breath, joint pain, rashes, lymphadenopathy, depression, anxiety, visual changes, dizziness, headache. Allergies: Coded Allergies: No Known Allergies (Unverified , 07/08/16) Patient History Past Medical History: see triage record, old chart reviewed Social History: Reports: smoking, drug use - See tox screen Social History Narrative Patient from home Reviewed Nursing Documentation: PMH: Agreed; PSxH: Agreed Nursing Documentation-PM Past Medical History: No History, Except For Hx Cardiac Problems: No Hx Hypertension: Yes Hx Asthma: No Review of Systems All Other Systems: negative except mentioned in HPI Physical Exam Vital Signs Date Time Temp Pulse Resp B/P (MAP) Pulse Ox O2 Delivery O2 Flow Rate FiO2 05/31/19 08:56 98.2 106 19 124/91 (102) 100 Room Air Sp02 EP Interpretation: reviewed, normal General Appearance: well appearing, no apparent distress, GCS 15 Head: normocephalic Eyes: bilateral eye normal inspection, bilateral eye PERRL, bilateral eye EOMI ENT: moist mucus membranes Neck: supple Respiratory: lungs clear, normal breath sounds Cardiovascular #1: regular rate, rhythm Cardiovascular #2: 2+ radial (R) Gastrointestinal: normal inspection, normal bowel sounds, non tender, no mass, non-distended Genitourinary: penis normal, other - Tender epididymis right testicle not high riding left testicle normal Musculoskeletal: back normal, normal range of motion, gait/station normal Neurologic: alert, oriented x3, grossly normal Psychiatric: mood/affect normal Skin: no rash, warm/dry Medical Decision Making Diagnostic Impression: Primary Impression: Acute epididymitis Additional Impression: Methamphetamine abuse ER Course Patient presents with right testicular pain associated with sexual activity. Differential includes torsion, epididymitis, urinary tract infection amongst others. Testicular ultrasound indicated. There is no evidence of hernia at this time. Labs will be obtained and patient will be treated with Toradol. Most likely will need coverage for sexually transmitted disease. Labs normal white count. CMP with minimally elevated glucose. Normal renal function. Pyuria. Tox screen positive for amphetamine and THC. Patient sleeping prior to ultrasound. Ultrasound with epididymitis. Rocephin administered IV. Doxycycline administered orally. Patient improved with treatment. Discussed findings with patient. Patient pressuring for opiates. Discussed findings with patient. Discussed the need for outpatient follow-up. Patient stable for outpatient observation and treatment. Laboratory Tests Test 05/31/19 09:20 White Blood Count 5.8 K/UL (4.8-10.8) Red Blood Count 4.48 M/UL (4.70-6.10) L Hemoglobin 13.9 G/DL (14.2-18.0) L Hematocrit 40.1 % (42.0-52.0) L Mean Corpuscular Volume 89 FL (80-99) Mean Corpuscular Hemoglobin 30.9 PG (27.0-31.0) Mean Corpuscular Hemoglobin Concent 34.6 G/DL (32.0-36.0) Red Cell Distribution Width 12.6 % (11.6-14.8) Platelet Count 288 K/UL (150-450) Mean Platelet Volume 5.7 FL (6.5-10.1) L Neutrophils (%) (Auto) 42.4 % (45.0-75.0) L Lymphocytes (%) (Auto) 46.0 % (20.0-45.0) H Monocytes (%) (Auto) 9.3 % (1.0-10.0) Eosinophils (%) (Auto) 1.2 % (0.0-3.0) Basophils (%) (Auto) 1.0 % (0.0-2.0) Urine Color Yellow Urine Appearance Clear Urine pH 7 (4.5-8.0) Urine Specific [place] 1.010 (1.005-1.035) Urine Protein 2+ (NEGATIVE) H Urine Glucose (UA) Negative (NEGATIVE) Urine Ketones Negative (NEGATIVE) Urine Blood 1+ (NEGATIVE) H Urine Nitrite Negative (NEGATIVE) Urine Bilirubin Negative (NEGATIVE) Urine Urobilinogen 8 MG/DL (0.0-1.0) H Urine Leukocyte Esterase 1+ (NEGATIVE) H Urine RBC 2-4 /HPF (0 - 0) H Urine WBC 10-15 /HPF (0 - 0) H Urine Squamous Epithelial Cells Occasional /LPF Urine Bacteria Occasional /HPF (NONE) Urine Sperm Few /LPF (NONE) Sodium Level 139 MMOL/L (136-145) Potassium Level 3.8 MMOL/L (3.5-5.1) Chloride Level 103 MMOL/L (98-107) Carbon Dioxide Level 28 MMOL/L (21-32) Anion Gap 8 mmol/L (5-15) Blood Urea Nitrogen 13 mg/dL (7-18) Creatinine 1.0 MG/DL (0.55-1.30) Estimate Glomerular Filtration Rate > 60 mL/min (>60) Glucose Level 135 MG/DL (74-106) H Calcium Level 8.8 MG/DL (8.5-10.1) Total Bilirubin 0.2 MG/DL (0.2-1.0) Aspartate Amino Transferase (AST) 21 U/L (15-37) Alanine Aminotransferase (ALT) 28 U/L (12-78) Alkaline Phosphatase 65 U/L (46-116) Total Protein 6.9 G/DL (6.4-8.2) Albumin 3.2 G/DL (3.4-5.0) L Globulin 3.7 g/dL Albumin/Globulin Ratio 0.9 (1.0-2.7) L Lipase 223 U/L (73-393) Urine Opiates Screen Negative (NEGATIVE) Urine Barbiturates Screen Negative (NEGATIVE) Phencyclidine (PCP) Screen Negative (NEGATIVE) Urine Amphetamines Screen Positive (NEGATIVE) H Urine Benzodiazepines Screen Negative (NEGATIVE) Urine Cocaine Screen Negative (NEGATIVE) Urine Marijuana (THC) Screen Positive (NEGATIVE) H Chlamydia trachomatis RNA Pending Neisseria gonorrhoeae RNA Pending CT/MRI/US Diagnostic Results CT/MRI/US Diagnostic Results : Imaging Test Ordered: testicular u/s Impression epididymitis Last Vital Signs Date Time Temp Pulse Resp B/P (MAP) Pulse Ox O2 Delivery O2 Flow Rate FiO2 05/31/19 11:12 98.2 75 17 129/88 100 Room Air Status: improved Disposition: HOME, SELF-CARE Condition: Improved Scripts Acetaminophen (Tylenol) 325 Mg Tablet 650 MG ORAL Q6H PRN for Prn Pain/Headache/Temp > 101, #20 TAB 0 Refills Prov: Young Marroquin MD 05/31/19 Ibuprofen* (MOTRIN*) 600 Mg Tablet 600 MG ORAL Q6H PRN for For Pain, #16 TAB Prov: Young Marroquin MD 05/31/19 Doxycycline Monohydrate* (DOXYCYCLINE MONOHYDRATE*) 100 Mg Capsule 100 MG ORAL Q12H, #20 CAP 0 Refills Prov: Young Marroquin MD 05/31/19 Young Marroquin MD May 31, 2019 09:21
[2019-05-31 09:30] VITALS: BP 124/91
[2019-05-31 09:40] LABS: EOSINOPHILS % (AUTO) 1.2 % (0.0-3.0); HEMATOCRIT 40.1 % (42.0-52.0); HEMOGLOBIN 13.9 G/DL (14.2-18.0); MEAN CORPUSCULAR VOLUME 89 FL (80-99); MONOCYTES % (AUTO) 9.3 % (1.0-10.0); NEUTROPHILS % (AUTO) 42.4 % (45.0-75.0); PLATELET COUNT 288 K/UL (150-450); RED BLOOD COUNT 4.48 M/UL (4.70-6.10); RED CELL DISTRIBUTION WIDTH 12.6 % (11.6-14.8); WHITE BLOOD COUNT 5.8 K/UL (4.8-10.8)
[2019-05-31 09:46] LABS: APPEARANCE,URINE CLEAR; BILIRUBIN, URINE NEGATIVE (NEGATIVE); GLUCOSE, URINE (UA) NEGATIVE (NEGATIVE); KETONES,URINE NEGATIVE (NEGATIVE); LEUKOCYTE ESTERASE ,URINE 1+ (NEGATIVE); NITRITE,URINE NEGATIVE (NEGATIVE); PH,URINE 7 (4.5-8.0); PROTEIN,URINE 2+ (NEGATIVE); UROBILINOGEN,URINE 8 MG/DL (0.0-1.0)
[2019-05-31 09:47] LABS: COLOR,URINE YELLOW
--- NOTE | 2019-05-31 09:53 | NUR ---
ED Nurse Note: US tech at bedside.
[2019-05-31 09:56] LABS: ANION GAP 8 mmol/L (5-15); BLOOD UREA NITROGEN 13 mg/dL (7-18); CALCIUM 8.8 MG/DL (8.5-10.1); CARBON DIOXIDE 28 MMOL/L (21-32); CHLORIDE 103 MMOL/L (98-107); POTASSIUM 3.8 MMOL/L (3.5-5.1); SODIUM 139 MMOL/L (136-145)
[2019-05-31 10:01] LABS: ALANINE AMINOTRANSFERASE 28 U/L (12-78); ALBUMIN 3.2 G/DL (3.4-5.0); ALBUMIN/GLOBULIN RATIO 0.9 (1.0-2.7); ALKALINE PHOSPHATASE 65 U/L (46-116); ASPARTATE AMINO TRANSFERASE 21 U/L (15-37); BILIRUBIN,TOTAL 0.2 MG/DL (0.2-1.0)
[2019-05-31] MEDS ORDERED: cefTRIAXone 1 GM in NS 55 ML IVPB ONE (10:15)
[2019-05-31] MEDS ORDERED: Doxycycline Monohydrate 100mg ORAL ONE (10:15)
[2019-05-31] MEDS ORDERED: DOXYCYCLINE MO100 MG ORAL (11:01)
[2019-05-31] MEDS ORDERED: TYLENOL325 MG ORAL (11:01)
[2019-05-31] MEDS ORDERED: IBUPROFEN600 MG ORAL (11:01)
[2019-05-31 11:11] VITALS: BP 129/88
[2019-05-31 11:12] VITALS: BP 129/88
--- NOTE | 2019-05-31 11:21 | NUR ---
ER DISCHARGE NOTE: Patient is cleared to be discharged per ERMD, pt is aox4, on room air, with stable vital signs. pt was given dc and prescription instructions, pt was able to verbalize understanding, pt id band and iv site removed without complications. pt is able to ambulate with steady gait. pt took all belongings.
--- NOTE | 2019-05-31 12:37 | Diagnostic Imaging Report ---
Indication:Scrotal pain Technique: Real time grayscale and duplex Doppler imaging of the scrotum performed. Comparison: None Findings: The size, contour, and echogenicitiy of the testis appear normal bilaterally. Microlithiasis noted bilaterally. The left epididymis is heterogeneous and appears slightly hypervascular consistent with epididymitis. Small hydrocele noted. There is no testicular mass or evidence of torsion. There is good doppler evidence of blood flow within both testes. The right testis measures 3.7 x 2.2 x 2.9 cm. Left testis 4.5 x 1.9 x 3.2 cm. Impression: Left epididymitis. Small hydrocele. No evidence of testicular mass or torsion. Testicular microlithiasis
== END 2019-05-31 11:20 | disposition home or self-care (01) ==
LOC: EMR 09:25
DX: N45.1 Epididymitis (principal); F15.10 Other stimulant abuse, uncomplicated; I10 Essential (primary) hypertension
CPT/HCPCS: 36415; 76870; 80053; 80307; 81003; 83690; 85025; 87086; 87491; 87590; 96365; 96375; J0696; J1885; Z7502; 99284

== ENCOUNTER 2019-09-05 02:17 | Emergency (ER) | payer MEDICAID ==
[~2019-09-05] VITALS: Ht 170.2 cm; Wt 81.6 kg
[~2019-09-05 02:17] MED LIST changes: +DOXYCYCLINE MO100 MG ORAL; +TYLENOL325 MG ORAL
[2019-09-05 02:44] VITALS: BP 158/95
--- NOTE | 2019-09-05 02:44 | NUR ---
ED Nurse Note: Pt ambulated into ed from home CO burning during urination, redness, swelling, and discharge at tip of penis. Pt states pain 7/10. VSS no ss of distress noted. Awaiting ERMD at bedside
--- NOTE | 2019-09-05 02:49 | NUR ---
ED Nurse Note: ERMD at bedside
--- NOTE | 2019-09-05 02:56 | Emergency Room Report ---
History of Present Illness General Chief Complaint: Male Urogenital Problems Source: Patient Present Illness HPI Disclaimer: Please note that this report is being documented using DRAGON technology. This can lead to erroneous entry secondary to incorrect interpretation by the dictating instrument. HPI: 54-year-old male presents from home due to concern for STD. He said dysuria and urethral discharge for the past 3 days. He reports a random sexual encounter recently. He states he has had STDs in the past and this feels similar. No fever nausea or vomiting. PMH: Patient denies past medical history PSH: Reviewed Social Hx: Drinks, smokes cigarettes, occasionally uses illicit drugs Allergies: Coded Allergies: No Known Allergies (Unverified , 07/08/16) COVID-19 Screening Contact w/high risk pt: No Recent Travel to affected area: No Experienced COVID-19 symptoms?: No COVID-19 Testing performed [employer]ONE CHIMNEY [place]ON: No Patient History Reviewed Nursing Documentation: PMH: Agreed; PSxH: Agreed Nursing Documentation-PMH Past Medical History: No History, Except For Hx Cardiac Problems: No Hx Hypertension: Yes Hx Asthma: No Review of Systems All Other Systems: negative except mentioned in HPI Physical Exam Vital Signs Date Time Temp Pulse Resp B/P (MAP) Pulse Ox O2 Delivery O2 Flow Rate FiO2 09/05/19 02:35 98.2 86 16 158/95 (116) 96 Room Air Sp02 EP Interpretation: reviewed, normal General Appearance: well appearing, no apparent distress Head: normocephalic, atraumatic Eyes: bilateral eye PERRL, bilateral eye EOMI ENT: hearing grossly normal, moist mucus membranes Neck: full range of motion, supple Respiratory: lungs clear, normal breath sounds, no rhonchi, no respiratory distress, no retraction, no wheezing Cardiovascular #1: normal peripheral pulses, regular rate, rhythm, no murmur Gastrointestinal: non tender, soft, non-distended, no guarding Neurologic: alert, oriented x3, no focal defects Skin: normal color, warm/dry Medical Decision Making Diagnostic Impression: Primary Impression: Urethritis ER Course Patient presented due to concern for STD. Differential included urethritis, UTI , low suspicion for sepsis. Patient described penile discharge similar to his previous STDs in the past. He requested empiric treatment for STD. Patient given azithromycin and Rocephin. Was instructed to have his partners treated as well. Otherwise nontoxic stable for discharge. Last Vital Signs Date Time Temp Pulse Resp B/P (MAP) Pulse Ox O2 Delivery O2 Flow Rate FiO2 09/05/19 02:44 98.2 86 16 158/95 96 Room Air Disposition: HOME, SELF-CARE Condition: Stable Patient Instructions: Urethritis, Adult Additional Instructions: Patient is instructed to follow-up with her primary care doctor, primary care clinic or [facility] in 1 to 2 days. Patient instructed to return for any worsening symptoms or concerns. Disclaimer: Please note that this report is being documented using Hooja technology. This can lead to erroneous entry secondary to incorrect interpretation by the dictating instrument. Jenaro Braun M.D. Sep 05, 2019 02:56
[2019-09-05] MEDS ORDERED: Lidocaine 1% MPF 10mg/ml 5ml INJ ONE (03:00)
[2019-09-05] MEDS ORDERED: Azithromycin 250mg tab ORAL ONE (03:00)
[2019-09-05 03:08] VITALS: BP 158/95
--- NOTE | 2019-09-05 03:08 | NUR ---
ER DISCHARGE NOTE: Patient is cleared to be discharged home per ERMD, pt is aox4, 97% on room air, with stable vital signs. pt was given dc and prescription instructions, pt was able to verbalize understanding, pt id band removed. pt is able to ambulate with steady gait. pt took all belongings.
== END 2019-09-05 03:08 | disposition home or self-care (01) ==
LOC: EMR 02:41
DX: N34.2 Other urethritis (principal); I10 Essential (primary) hypertension; F17.210 Nicotine dependence, cigarettes, uncomplicated
CPT/HCPCS: 96372; 96374; J0696; Q0144; Z7502; 99284

== ENCOUNTER 2019-10-19 23:51 | Emergency (ER) | payer MEDICAID ==
[~2019-10-19] VITALS: Ht 170.2 cm; Wt 81.6 kg
[2019-10-20] VITALS: BP 162/109
--- NOTE | 2019-10-20 | NUR ---
ED Nurse Note: Pt walked into ED from home for c/o L lower back pain. Pt recently dx with arthritis. Pt denies any trauma or injury to the area. Pt reports increased pain with movement. Pt is aaox4, breathing is normal and unlabored. No cough, SOB or fever.
[2019-10-20] MEDS ORDERED: Ketorolac 30mg Inj IM ONE (00:30)
[2019-10-20] MEDS ORDERED: Methocarbamol 750mg tab ORAL ONE (00:30)
[2019-10-20] MEDS ORDERED: HYDROcodone/Acetamin 10/325 tab ORAL ONE (00:30)
[2019-10-20] MEDS ORDERED: LIDODERM700 M1 TOPIC (00:40)
[2019-10-20] MEDS ORDERED: NORCO 10-325 T1 EACH ORAL (00:40)
[2019-10-20] MEDS ORDERED: IBUPROFEN600 M1 ORAL (00:40)
[2019-10-20] MEDS ORDERED: ROBAXIN-750750 MG PO (00:40)
--- NOTE | 2019-10-20 00:40 | NUR ---
ED Nurse Note: Pt states his significant other is driving him home and he is not driving himself.
[2019-10-20 00:45] VITALS: BP 144/98
--- NOTE | 2019-10-20 00:45 | NUR ---
ER DISCHARGE NOTE: Patient is cleared to be discharged per ERMD, pt is aox4, on room air, with stable vital signs. pt was given dc and prescription instructions, pt was able to verbalize understanding, pt id band removed. pt is able to ambulate with steady gait. pt took all belongings and is accompanied by and being driven home by significant other.
--- NOTE | 2019-10-20 00:52 | Emergency Room Report ---
History of Present Illness General Chief Complaint: Back Pain-No Injury Source: Patient Present Illness HPI 54-year-old male presents to ED for evaluation. States he has been having back pain which started tonight. Pain is throbbing, 10 out of 10, radiating down the left leg. Denies bowel or bladder incontinence. Denies any leg or motor weakness. States that he was seen at [facility] 4 days ago for similar pain. X- rays which showed arthritis in his back. Was prescribed medication which she states is not helping. States he has had problems with his back for many years now. Denies any recent fall or injury. No other aggravating relieving factors. 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 Patient History Past Medical History: DM, HTN Past Surgical History: none Pertinent Family History: none Social History: Denies: smoking, alcohol use, drug use Immunizations: UTD Reviewed Nursing Documentation: PMH: Agreed; PSxH: Agreed Nursing Documentation-PMH Hx Cardiac Problems: No Hx Hypertension: Yes Hx Asthma: No Hx Diabetes: Yes Review of Systems All Other Systems: negative except mentioned in HPI Physical Exam Vital Signs Date Time Temp Pulse Resp B/P (MAP) Pulse Ox O2 Delivery O2 Flow Rate FiO2 10/19/19 23:58 97.9 90 18 162/109 (126) 98 Room Air Sp02 EP Interpretation: reviewed, normal General Appearance: no apparent distress, alert, GCS 15, non-toxic Head: normocephalic, atraumatic Eyes: bilateral eye normal inspection, bilateral eye PERRL ENT: hearing grossly normal, normal pharynx, no angioedema, normal voice Neck: full range of motion, supple/symm/no masses Respiratory: chest non-tender, lungs clear, normal breath sounds, speaking full sentences Cardiovascular #1: regular rate, rhythm, no edema Cardiovascular #2: 2+ carotid (R), 2+ carotid (L), 2+ radial (R), 2+ radial (L) , 2+ dorsalis pedis (R), 2+ dorsalis pedis (L) Gastrointestinal: normal bowel sounds, non tender, soft, non-distended, no guarding, no rebound Rectal: deferred Genitourinary: normal inspection, no CVA tenderness, vertebral tenderness Musculoskeletal: back normal, normal range of motion, gait/station normal, tender Neurologic: alert, motor strength/tone normal, oriented x3, sensory intact, responsive, speech normal Psychiatric: judgement/insight normal, memory normal, mood/affect normal, no suicidal/homicidal ideation Reflexes: 3+ bicep (R), 3+ bicep (L), 3+ tricep (R), 3+ tricep (L), 3+ knee (R) , 3+ knee (L) Skin: no rash Lymphatic: no adenopathy Medical Decision Making Diagnostic Impression: Primary Impression: Back pain Qualified Codes: M54.42 - Lumbago with sciatica, left side ER Course Hospital Course 54-year-old male presents ED complaining of lower back pain and L hip pain. No evidence of trauma Differential diagnoses include: pyelonephritis, kidney stone, muscle strain, Lspine fracture Clinical course Patient placed on stretcher. After initial history exam reveals middle-age male in no acute distress. There is pain to the lower back on the left radiating down the buttock. 5 out of 5 strength in lower extremities. No sensory deficits. Patient has been seen here previously for similar pain. I discussed findings with patient. Patient would benefit from physical therapy and Ortho evaluation. States he has had epidurals in the past. Given pain meds here. Safe for discharge for close outpatient follow-up. I will provide referrals Diagnosis - back pain Stable and discharged to home with prescription for Motrin, [place], Robaxin, Lidoderm. Followup with PMD. Return to ED if symptoms recur or worsen Last Vital Signs Date Time Temp Pulse Resp B/P (MAP) Pulse Ox O2 Delivery O2 Flow Rate FiO2 10/20/19 00:45 97.9 82 16 144/98 99 Room Air Status: improved Disposition: HOME, SELF-CARE Condition: Stable Scripts Lidocaine Patch* (Lidoderm Patch*) 1 Each Adh..patch 1 PATCH TOPIC DAILY, #7 PATCH 0 Refills Patch(es) may remain in place for up to 12 hours in any 24-hour period. Prov: Albert Medina MD 10/20/19 Methocarbamol* (ROBAXIN-750*) 750 Mg Tablet 750 MG PO TID, #21 TAB 0 Refills Prov: Albert Medina MD 10/20/19 Hydrocodone Bit/Acetaminophen 10-325* (NORCO 10-325*) 1 Each Tablet 1 TAB ORAL Q6H PRN for For Pain, #12 TAB 0 Refills PRN PAIN Prov: Albert Medina MD 10/20/19 Ibuprofen* (MOTRIN*) 600 Mg Tablet 600 MG ORAL Q8H PRN for FOR PAIN, #30 TAB 0 Refills Prov: Albert Medina MD 10/20/19 Referrals: [facility]ERR[facility] 24 hour /7 days a week by Appointment Only [address] [place] [id number] Patient Instructions: Back Pain, Adult Albert Medina MD Oct 20, 2019 00:52
== END 2019-10-20 00:45 | disposition home or self-care (01) ==
LOC: EMR 10-20 00:20
DX: M54.42 Lumbago with sciatica, left side (principal); E11.9 Type 2 diabetes mellitus without complications; I10 Essential (primary) hypertension
CPT/HCPCS: 96372; J1885; Z7502; 99283

== ENCOUNTER 2020-01-11 18:33 | Emergency (ER) | payer MEDICAID ==
[~2020-01-11] VITALS: Ht 170.2 cm; Wt 81.6 kg
[~2020-01-11 18:33] MED LIST changes: +IBUPROFEN600 M1 ORAL; +LIDODERM700 M1 TOPIC; +NORCO 10-325 T1 EACH ORAL; +ROBAXIN-750750 MG PO
--- NOTE | 2020-01-11 18:48 | NUR ---
ED Nurse Note: pt presents to ED c/o abscess x 2 days. pt states that his girlfriend popped and drained pus out of the abscess. pt is noted to have an open wound on his upper back with redness and induration surrounding wound bed
[2020-01-11 18:49] VITALS: BP 157/97
--- NOTE | 2020-01-11 18:56 | Emergency Room Report ---
History of Present Illness General Chief Complaint: Skin Rash/Abscess Source: Patient, Medical Record Present Illness HPI 54-year-old male with history of HIV and hypertension currently controlled with medication of a painful lesion on upper back. Reports that its been there for 4 days and started draining today. Cellulitis noted with minimal pus drainage. At this time no I&D needed. Patient is up-to-date with tetanus shot, denies any fever chills, chest pain, shortness of breath, headache and dizziness. Has not taken medication for symptom relief. 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 COVID-19 Screening: Positive COVID-19 COVID-19 Testing Source: weeks ago Patient History Past Medical History: see triage record Past Surgical History: none Pertinent Family History: none Immunizations: UTD Reviewed Nursing Documentation: PMH: Agreed; PSxH: Agreed Nursing Documentation-PMH Past Medical History: No History, Except For Hx Cardiac Problems: No Hx Hypertension: Yes Hx Asthma: No Hx Diabetes: Yes Review of Systems All Other Systems: negative except mentioned in HPI Physical Exam Vital Signs Date Time Temp Pulse Resp B/P (MAP) Pulse Ox O2 Delivery O2 Flow Rate FiO2 01/11/20 18:40 98.8 108 17 157/97 (117) 96 Room Air Sp02 EP Interpretation: reviewed, normal General Appearance: no apparent distress, alert, GCS 15, non-toxic Head: normocephalic, atraumatic Eyes: bilateral eye normal inspection, bilateral eye PERRL ENT: hearing grossly normal, normal pharynx, no angioedema, normal voice Neck: full range of motion, supple/symm/no masses Respiratory: chest non-tender, lungs clear, normal breath sounds, no rhonchi, n o respiratory distress, no retraction, speaking full sentences Cardiovascular #1: regular rate, rhythm, no murmur Gastrointestinal: normal bowel sounds, non tender, soft, non-distended, no guarding, no rebound Genitourinary: no CVA tenderness Musculoskeletal: swelling - Cellulitis noted upper back Neurologic: alert, motor strength/tone normal, oriented x3, sensory intact, responsive, speech normal Psychiatric: judgement/insight normal, memory normal, mood/affect normal, no suicidal/homicidal ideation Skin: other - Cellulitis upper back Lymphatic: no adenopathy Medical Decision Making PA Attestation All my diagnosis and treatment plans were reviewed ad discussed with my supervis ing physician Dr. Marcus Diagnostic Impression: Primary Impression: Cellulitis of back ER Course 54-year-old male with history of HIV and hypertension currently controlled with medication of a painful lesion on upper back. Reports that its been there for 4 days and started draining today. Cellulitis noted with minimal pus drainage. At this time no I&D needed. Patient is up-to-date with tetanus shot, denies any fever chills, chest pain, shortness of breath, headache and dizziness. Has not taken medication for symptom relief. Ddx considered but are not limited to : Cellulitis,, superficial infection, abscess Vital signs: are WNL, pt. is afebrile H&PE are most consistent with: Cellulitis of back ORDERS: Keflex, Bactrim, ibuprofen, mupirocin ointment per patient request ED INTERVENTIONS: First dose of Keflex and Bactrim DS DISCHARGE: At this time pt. is stable for d/c to home. Will provide printed patient care instructions, and any necessary prescriptions. Care plan and follow up instructions have been discussed with the patient prior to discharge. Wound care needed in 24 to 48 hours, patient take medication as directed, follow primary care provider, for symptoms and return to emergency room Last Vital Signs Date Time Temp Pulse Resp B/P (MAP) Pulse Ox O2 Delivery O2 Flow Rate FiO2 01/11/20 18:49 98.8 78 17 157/97 96 Room Air Disposition: HOME, SELF-CARE Condition: Stable Scripts Mupirocin* (MUPIROCIN*) 22 Gm Oint...g. 1 APPLIC TOPIC THREE TIMES A DAY, #22 GM Prov: Serina Toro 01/11/20 Ibuprofen (Ibu) 800 Mg Tablet 800 MG PO TID, #30 TAB Prov: Serina Toro 01/11/20 Trimethoprim/Sulfamethoxazole 160/800* (BACTRIM DS TABLET*) 1 Each Tablet 1 TAB ORAL TWICE A DAY for 7 Days, #14 TAB Prov: Serina Toro 01/11/20 Cephalexin* (KEFLEX*) 500 Mg Capsule 500 MG ORAL EVERY 6 HOURS for 7 Days, #28 CAP Prov: Serina Toro 01/11/20 Patient Instructions: Cellulitis, [id number] Additional Instructions: Take medication as directed, follow-up with your primary care provider, you need a wound check in 24 to 48 hours, if worsening symptoms return to the emergency room Serina Toro Jan 11, 2020 18:56
[2020-01-11] MEDS ORDERED: CEPHALEXIN500 MG ORAL (18:58)
[2020-01-11] MEDS ORDERED: MUPIROCIN22 GM TOPIC (18:58)
[2020-01-11] MEDS ORDERED: BACTRIM DS TAB1 EAC1 ORAL (18:58)
[2020-01-11] MEDS ORDERED: IBU800 MG PO (18:58)
[2020-01-11 19:10] VITALS: BP 157/97
[2020-01-11] MEDS ORDERED: Bactrim-DS 1 tab ORAL ONE (19:15)
[2020-01-11] MEDS ORDERED: Cephalexin 500mg cap ORAL ONE (19:15)
== END 2020-01-11 19:10 | disposition home or self-care (01) ==
LOC: EMR 19:00
DX: L03.312 Cellulitis of back [any part except buttock and flank] (principal); B20 Human immunodeficiency virus [HIV] disease; I10 Essential (primary) hypertension; E11.9 Type 2 diabetes mellitus without complications
CPT/HCPCS: 99282